=== PATIENT | male | born 1995 | race Caucasian/White ===

== ENCOUNTER 2017-09-14 16:01 | Emergency (ER) | payer BC, OTHER ==
[~2017-09-14] VITALS: Ht 177.8 cm; Wt 74.8 kg
[2017-09-14 16:28] VITALS: BP 111/77
== END 2017-09-14 17:27 | disposition home or self-care (01) ==
LOC: ER 16:11
DX: S60.571A Other superficial bite of hand of right hand, initial encounter (principal); W53.11XA Bitten by rat, initial encounter; Y93.89 Activity, other specified; Y99.0 Civilian activity done for income or pay; Y92.513 Shop (commercial) as the place of occurrence of the external cause